=== PATIENT | male | born 1955 | race Caucasian/White ===

== ENCOUNTER 2021-05-09 09:57 | Emergency (ER) | payer BC, OTHER ==
[~2021-05-09] VITALS: Ht 167.6 cm; Wt 79.4 kg
--- NOTE | 2021-05-09 10:11 | NUR ---
BIB EMS NOCOMPLIANT WITH SEIZURE MEDS HAD SEIZURE THIS AM AND ASSISTED TO GROUND.
[2021-05-09 10:13] VITALS: BP_SYST 144
--- NOTE | 2021-05-09 10:23 | NUR ---
AND MD AT BEDSIDE
[2021-05-09] MEDS ORDERED: LORazepam 2 MG/ML VIAL IVP ONE (10:30)
[2021-05-09] MEDS ORDERED: LACOSAMIDE 100 MG TABLET PO ONE (10:30)
[2021-05-09 10:48] LABS: BASOPHILS % (AUTO) 0.8 % (0.0-2.0); EOSINOPHILS # (AUTO) 0.1 K/uL (0.0-0.4); EOSINOPHILS % (AUTO) 2.8 % (0.0-4.0); HEMATOCRIT 40.2 % (36-54); HEMOGLOBIN 13.6 g/dL (14.0-18.0); LYMPHOCYTES # (AUTO) 0.5 K/uL (1.0-5.5); MEAN CORPUSCULAR HEMOGLOBIN 32 pg (27-31); MEAN CORPUSCULAR HGB CONC 34 % (32-36); MEAN CORPUSCULAR VOLUME 94 fL (79.0-98.0); MONOCYTES # (AUTO) 0.4 K/uL (0.0-1.0); MONOCYTES % (AUTO) 8.6 % (1.7-9.3); NEUTROPHILS # (AUTO) 3.5 K/uL (1.8-7.7); NEUTROPHILS % (AUTO) 76.8 % (40.0-70.0); PLATELET COUNT (AUTO) 155 K/uL (130-430); RED BLOOD CELL COUNT(AUTO) 4.27 MIL/uL (4.2-6.2); RED CELL DISTRIBUTION WIDTH 12.7 % (9.0-15.0); WHITE BLOOD COUNT (AUTO) 4.5 K/uL (4.8-10.8)
[2021-05-09] MEDS ORDERED: ASPI-524 PO (10:59)
[2021-05-09] MEDS ORDERED: ROSU20TA2 PO (10:59)
[2021-05-09] MEDS ORDERED: LOSA1TAB37 PO (10:59)
[2021-05-09] MEDS ORDERED: LANS15CA47 PO (10:59)
[2021-05-09] MEDS ORDERED: METO-540 PO (10:59)
[2021-05-09] MEDS ORDERED: EZET10TA PO (10:59)
[2021-05-09] MEDS ORDERED: CLOP75TA2 PO (10:59)
[2021-05-09] MEDS ORDERED: CHOL50006 PO (10:59)
[2021-05-09] MEDS ORDERED: GABA-331 PO (10:59)
[2021-05-09] MEDS ORDERED: LACO100T2 PO (10:59)
[2021-05-09 11:02] LABS: CALCIUM 9.1 mg/dL (8.4-11.0); CREATININE 0.98 mg/dL (0.55-1.30); POTASSIUM 4.3 mmol/L (3.5-5.1)
[2021-05-09 11:08] LABS: ALBUMIN 3.8 g/dL (3.4-4.8); TOTAL BILIRUBIN 0.3 mg/dL (0.0-1.0)
--- NOTE | 2021-05-09 11:18 | NUR ---
ATTEPMTED ROOM AIR, PT HAS GRAYSON WHEN FALLS ASLEEP SPO2 88%. dR CUELLAR AWARE PLACED BACK ON 2 LITERS FIO2
--- NOTE | 2021-05-09 11:35 | NUR ---
Patient given written and verbal discharge instructions and verbalizes understanding. ER ALISA GARIBAY discussed with patient the results and treatment provided. Patient in stable condition. ID arm band removed. IV catheter removed intact and dressing applied, no active bleeding. Patient educated on pain management and to follow up with PMD. Pain Scale 0. Opportunity for questions provided and answered. Medication side effect fact sheet provided. NO SEIZURE ACTIVITY NOTED DURING ER STAY
[2021-05-09 12:32] VITALS: BP_SYST 134
== END 2021-05-09 12:32 | disposition home or self-care (01) ==
LOC: SED 09:57
DX: R56.9 Unspecified convulsions (principal); Z79.899 Other long term (current) drug therapy
CPT/HCPCS: 36415; 80053; 85025; 96374; 99283; J2060

== ENCOUNTER 2022-03-21 06:16 | Emergency (ER) | payer OTHER ==
[~2022-03-21] VITALS: Ht 180.3 cm; Wt 90.7 kg
[~2022-03-21 06:16] MED LIST: ASPI-524 PO; CEPH-548 PO; CHOL50006 PO; CLOP75TA2 PO; EZET10TA PO; GABA-331 PO; LACO100T2 PO; LANS15CA47 PO; LOSA1TAB37 PO; METO-540 PO; ROSU20TA2 PO
[2022-03-21 06:19] VITALS: BP_SYST 121
--- NOTE | 2022-03-21 07:01 | NUR ---
# 20 gauge angiocath placed to . Use of asceptic technique. Opsite placed over site. Blood return noted. Blood for lab drawn from site. Flushed with 10 cc of normal saline. No evidence of infiltration noted. Patient tolerated well.
--- NOTE | 2022-03-21 07:11 | NUR ---
REPORT GIVEN TO ART NUÑEZ.
--- NOTE | 2022-03-21 07:26 | NUR ---
RECEIVED PT FROM ART JAMES. ASSUMED CARE.
[2022-03-21 07:36] LABS: BASOPHILS % (AUTO) 0.3 % (0.0-2.0); EOSINOPHILS # (AUTO) 0.1 K/uL (0.0-0.4); EOSINOPHILS % (AUTO) 1.2 % (0.0-4.0); HEMATOCRIT 38.7 % (36-54); LYMPHOCYTES # (AUTO) 0.7 K/uL (1.0-5.5); LYMPHOCYTES % (AUTO) 9.3 % (20.5-51.5); MEAN CORPUSCULAR VOLUME 94 fL (79.0-98.0); MONOCYTES # (AUTO) 0.9 K/uL (0.0-1.0); MONOCYTES % (AUTO) 11.9 % (1.7-9.3); NEUTROPHILS % (AUTO) 77.3 % (40.0-70.0); PLATELET COUNT (AUTO) 159 K/uL (130-430); RED BLOOD CELL COUNT(AUTO) 4.09 MIL/uL (4.2-6.2); RED CELL DISTRIBUTION WIDTH 12.6 % (9.0-15.0); WHITE BLOOD COUNT (AUTO) 7.8 K/uL (4.8-10.8)
--- NOTE | 2022-03-21 07:51 | NUR ---
DR. BHATTI AT BEDSIDE TO ASSESS PT.
[2022-03-21 07:55] LABS: CALCIUM 9.2 mg/dL (8.4-11.0); CREATININE 1.23 mg/dL (0.55-1.30); POTASSIUM 3.7 mmol/L (3.5-5.1)
[2022-03-21 08:01] LABS: ALBUMIN 3.8 g/dL (3.4-4.8); TOTAL BILIRUBIN 1.1 mg/dL (0.0-1.0)
--- NOTE | 2022-03-21 08:47 | NUR ---
Note dm in [facility] - 03/21/22 at 0936 by [email or web address] CALLED ART FINLEY CHARGE OF [facility]ST AND MADE HER AWARE OF PT'S ADMIT ORDER.
--- NOTE | 2022-03-21 09:33 | NUR ---
Patient given written and verbal discharge instructions and verbalizes understanding. ER MD discussed with patient the results and treatment provided. Patient in stable condition. ID arm band removed. IV catheter removed intact and dressing applied, no active bleeding. Opportunity for questions provided and answered. Medication side effect fact sheet provided.
[2022-03-21 09:34] VITALS: BP_SYST 98
== END 2022-03-21 09:33 | disposition home or self-care (01) ==
LOC: SED 06:16
DX: R56.9 Unspecified convulsions (principal); Z88.0 Allergy status to penicillin; Z79.899 Other long term (current) drug therapy
CPT/HCPCS: 36415; 70450-TC; 76376; 80053; 83605; 85025; 99284